=== PATIENT | female | born 1990 | race Caucasian/White ===

== ENCOUNTER 2016-06-08 12:32 | Inpatient (IN) | payer OTHER, BC ==
[~2016-06-08] VITALS: Ht 157.5 cm; Wt 104.5 kg
[2016-06-08] MEDS ORDERED: D5%-LACTATED RINGERS 1,000 ML IV SCH (13:14)
[2016-06-08] MEDS ORDERED: OXYTOCIN 30U/ 0.9% NaCL 500ML 500 ML IV ONE (13:14)
[2016-06-08] MEDS ORDERED: SODIUM CITRATE/CITRIC ACID 30 ML UDC PO PRN (13:30)
[2016-06-08] MEDS ORDERED: FENTANYL PF 100 MCG/2ML IV PRN (13:30)
[2016-06-08] MEDS ORDERED: TERBUTALINE 1 MG/ML, 1ML IVPush PRN (13:30)
[2016-06-08] MEDS ORDERED: FENTANYL PF 100 MCG/2ML IVPush PRN (13:30)
[2016-06-08] MEDS ORDERED: ONDANSETRON 2MG/ML, 2ML IVPush PRN ×2 (13:30→23:00)
[2016-06-08] MEDS ORDERED: METOCLOPRAMIDE 5 MG/ML, 2ML IVPush PRN (13:30)
[2016-06-08 13:59] LABS: ASPARTATE AMINO TRANSFERASE 14 U/L (15-37); BLOOD UREA NITROGEN 7 mg/dL (7-18)
[2016-06-08 14:06] VITALS: BP 177/92
[2016-06-08 14:11] LABS: HEMOGLOBIN 12.1 g/dL (11.7-16.4)
[2016-06-08] MEDS: LACTATED RINGERS 1,000 ML IV SCH (14:36)
[2016-06-08] MEDS ORDERED: MISOPROSTOL 25 MCG TABLET ONE (14:48)
[2016-06-08] MEDS ORDERED: MAGNESIUM SULF. PMX 20GM/500ML 500 ML IV ONE (14:57)
[2016-06-08] MEDS ORDERED: MAGNESIUM SULFATE PMX 4GM/100M 100 ML ONE (14:57)
[2016-06-08] MEDS ORDERED: NEWBORN KIT ONE (14:57)
[2016-06-08] MEDS ORDERED: MISOPROSTOL 25 MCG TABLET VG PRN (15:00)
[2016-06-08] MEDS ORDERED: MAGNESIUM SULFATE PMX 4GM/100M 100 ML IVPB ONE (15:00)
[2016-06-08] MEDS: MAGNESIUM SULF. PMX 20GM/500ML 500 ML IV PRN (15:31)
[2016-06-08] MEDS ORDERED: OXYTOCIN 30U/ 0.9% NaCL 500ML 500 ML ONE (20:43)
[2016-06-08] MEDS ORDERED: OXYTOCIN 30U/ 0.9% NaCL 500ML 500 ML IV PRN (21:25)
[2016-06-08] MEDS ORDERED: FENTANYL PF 100 MCG/2ML ONE ×2 (22:00→22:26)
[2016-06-08] MEDS ORDERED: BUPIVACAINE 0.25% ONE (22:27)
[2016-06-08] MEDS ORDERED: FENTANYL/BUPIV./NS/PF 250 ML EPIDCONT ONE (22:27)
[2016-06-08] MEDS ORDERED: LACTATED RINGERS 1,000 ML IVBOLUS PRN ×2 (22:30→23:00)
[2016-06-08] MEDS ORDERED: LACTATED RINGERS 1,000 ML IV SCH (22:52)
[2016-06-08] MEDS ORDERED: FENTANYL/BUPIV./NS/PF 250 ML EPIDCONT SCH (22:52)
[2016-06-08] MEDS ORDERED: NALOXONE 0.4 MG/ML, 1ML IVPush PRN (23:00)
[2016-06-08] MEDS ORDERED: DIPHENHYDRAMINE 50 MG/ML, 1ML IVPush PRN (23:00)
[2016-06-08] MEDS ORDERED: EPHEDRINE 50 MG/ML, 1ML IVPush PRN (23:00)
[2016-06-09] MEDS ORDERED: MAGNESIUM SULF. PMX 20GM/500ML 500 ML IV ONE ×3 (00:07→20:55)
[2016-06-09] MEDS: MAGNESIUM SULF. PMX 20GM/500ML 500 ML IV PRN ×3 (00:41→21:03)
[2016-06-09] MEDS ORDERED: LIDOCAINE 1%, 20ML ONE (05:42)
[2016-06-09] MEDS ORDERED: MISOPROSTOL 200 MCG TABLET ONE (05:42)
[2016-06-09] MEDS ORDERED: ONDANSETRON 2MG/ML, 2ML IV PRN (08:30)
[2016-06-09] MEDS ORDERED: MISOPROSTOL 200 MCG TABLET PR PRN (08:30)
[2016-06-09] MEDS: PRENATAL VIT/IRON/FA 1 EACH TABLET PO SCH (09:00)
[2016-06-09] MEDS ORDERED: IBUPROFEN 600 MG TABLET ONE ×2 (10:37→16:27)
[2016-06-09] MEDS: IBUPROFEN 600 MG TABLET PO PRN ×2 (10:40→16:29)
[2016-06-09] MEDS ORDERED: OXYcodone/APAP 5/325MG TABLET ONE ×4 (11:04→21:08)
[2016-06-09] MEDS: OXYcodone/APAP 5/325MG TABLET PO PRN ×3 (11:05→21:14)
[2016-06-09] MEDS: LACTATED RINGERS 1,000 ML IV SCH (11:14)
[2016-06-09] MEDS: OXYTOCIN 30U/ 0.9% NaCL 500ML 500 ML IV SCH ×5 (11:30→22:46)
[2016-06-09 12:30] VITALS: BP 135/79
[2016-06-09 19:56] VITALS: BP 132/72
[2016-06-09] MEDS ORDERED: DOCUSATE 100 MG CAPSULE ONE (21:13)
[2016-06-09] MEDS: DOCUSATE 100 MG CAPSULE PO PRN (21:14)
[2016-06-10] MEDS: OXYTOCIN 30U/ 0.9% NaCL 500ML 500 ML IV SCH ×9 (00:12→14:26)
[2016-06-10] MEDS ORDERED: OXYcodone/APAP 5/325MG TABLET ONE (02:46)
[2016-06-10] MEDS: OXYcodone/APAP 5/325MG TABLET PO PRN ×4 (02:49→21:23)
[2016-06-10] MEDS ORDERED: IBUPROFEN 600 MG TABLET ONE (06:20)
[2016-06-10] MEDS: IBUPROFEN 600 MG TABLET PO PRN (06:22)
[2016-06-10 06:23] LABS: ASPARTATE AMINO TRANSFERASE 12 U/L (15-37); BLOOD UREA NITROGEN 7 mg/dL (7-18)
[2016-06-10 07:30] VITALS: BP 137/66
[2016-06-10] MEDS ORDERED: DOCUSATE 100 MG CAPSULE ONE (09:00)
[2016-06-10] MEDS ORDERED: PRENATAL VIT/IRON/FA 1 EACH TABLET ONE (09:00)
[2016-06-10] MEDS: PRENATAL VIT/IRON/FA 1 EACH TABLET PO SCH (09:02)
[2016-06-10] MEDS: DOCUSATE 100 MG CAPSULE PO PRN ×2 (09:02→21:23)
[2016-06-10] MEDS ORDERED: LEVO75TA PO (09:04)
[2016-06-10 09:15] VITALS: BP 139/85
[2016-06-10 16:30] VITALS: BP 173/80
[2016-06-10 16:31] VITALS: BP 154/72
[2016-06-10 20:24] VITALS: BP 136/74
[2016-06-11 00:25] VITALS: BP 135/75
[2016-06-11] MEDS: OXYcodone/APAP 5/325MG TABLET PO PRN ×2 (03:21→09:50)
[2016-06-11 04:30] VITALS: BP 138/85
[2016-06-11] MEDS ORDERED: LEVOTHYROXINE 75 MCG TABLET HOMEMEDPO SCH (06:00)
[2016-06-11] MEDS: DOCUSATE 100 MG CAPSULE PO PRN (08:24)
[2016-06-11] MEDS: PRENATAL VIT/IRON/FA 1 EACH TABLET PO SCH (08:24)
[2016-06-11] MEDS ORDERED: IBUP-1222 PO (10:41)
[2016-06-11] MEDS ORDERED: OXYC-302 PO (10:44)
== END 2016-06-11 12:24 | disposition home or self-care (01) | DRG 774 ==
LOC: LDOP 12:32 → LDIP 13:09 → 2NE 06-09 13:42 → 2NW 06-10 09:20
PROVIDERS: ADMIT Obstetrics & Gynecology; ATTEND Obstetrics & Gynecology
PROC: 0T9B70Z Drainage of Bladder with Drainage Device, Via Natural or Artificial Opening (ICD-10-PCS; 2016-06-08)
PROC: 10E0XZZ Delivery of Products of Conception, External Approach (ICD-10-PCS; principal; 2016-06-09)
PROC: 0KQM0ZZ Repair Perineum Muscle, Open Approach (ICD-10-PCS; 2016-06-09)
PROC: 00HU33Z Insertion of Infusion Device into Spinal Canal, Percutaneous Approach (ICD-10-PCS; 2016-06-09)
PROC: 3E0R3CZ (ICD-10-PCS; 2016-06-09)
PROC: 10907ZC Drainage of Amniotic Fluid, Therapeutic from Products of Conception, Via Natural or Artificial Opening (ICD-10-PCS; 2016-06-09)
DX: O13.4 Gestational [pregnancy-induced] hypertension without significant proteinuria, complicating childbirth (principal); O72.1 Other immediate postpartum hemorrhage; O99.12 Other diseases of the blood and blood-forming organs and certain disorders involving the immune mechanism complicating childbirth; Z37.0 Single live birth; O76 Abnormality in fetal heart rate and rhythm complicating labor and delivery; O70.1 Second degree perineal laceration during delivery; Z3A.39 39 weeks gestation of pregnancy; O12.14 Gestational proteinuria, complicating childbirth; R03.0 Elevated blood-pressure reading, without diagnosis of hypertension; D69.6 Thrombocytopenia, unspecified
CPT/HCPCS: 36415; 80053; 81001; 82248; 82570; 82803; 83735; 84156; 84550; 85025; 86850; 86900; J3010; J2590; J3475; J7120; J7121